=== PATIENT | male | born 1980 | race Caucasian/White ===

== ENCOUNTER 2019-07-18 16:33 | Emergency (ER) | payer BC, OTHER ==
[2019-07-18 17:08] VITALS: BP 128/77; PULSE 81; TEMP 99.2; BMI 34.4
--- NOTE | 2019-07-18 17:10 | PDOC ---
Rapid Medical Evaluation Chief Complaint: Cold Symptoms Time Seen by Provider: 07/18/19 17:07 Medical Evaluation: Allergies Allergy/AdvReac Type Severity Reaction Status Date / Time No Known Allergies Allergy Verified 07/18/19 17:05 Vital Signs Temp Pulse Resp BP Pulse Ox 99.2 F 81 16 128/77 97 07/18/19 17:05 07/18/19 17:05 07/18/19 17:05 07/18/19 17:05 07/18/19 17:05 07/18/19 17:08 I have performed a brief in-person evaluation of this patient. The patient presents with a chief complaint of: 1 month h/o persistent cough, runny nose, malaise and congestion. report had flu and strep test done which was negative Pertinent physical exam findings: afebrile I have ordered the following:CXR The patient will proceed to the ED for further evaluation. Discharge Disposition - Diagnosis Acute URI - Discharge Dispostion Condition at time of disposition: Stable - Referrals - Patient Instructions - Post Discharge Activity
--- NOTE | 2019-07-18 18:57 | PDOC ---
History of Present Illness - General Chief Complaint: Cold Symptoms Stated Complaint: COLD SYMPTOMS Time Seen by Provider: 07/18/19 17:07 - History of Present Illness Initial Comments: 07/18/19 18:56 39-year-old male without comorbidities presents for 4 weeks of upper respiratory symptoms completed a Z-Erik a week two continues to have cold symptoms Past History - Past Medical History Allergies/Adverse Reactions: Allergies Allergy/AdvReac Type Severity Reaction Status Date / Time No Known Allergies Allergy Verified 07/18/19 17:05 Home Medications: Ambulatory Orders No Home Medications 0 dose .ROUTE UTDICT 11/09/13 Acetaminophen [Tylenol .Regular Strength -] 650 mg PO Q6H PRN #90 tablet Aspirin Coated [Ecotrin -] 81 mg PO DAILY #30 tablet.ec 11/10/13 Metoprolol Succinate [Toprol XL -] 50 mg PO DAILY #30 tab.sr.24h 11/10/13 Naph,Mb-Db/K pH,Mbdb [PHOS-NaK PACKET -] 1 packet PO TID #6 pow 11/10/13 - Psycho Social/Smoking Cessation Hx Smoking History: Never smoked Have you smoked in the past 12 months: Yes Number of Cigarettes Smoked Daily: 1 Cigars Per Day: 1 Information on smoking cessation initiated: No 'Breaking Loose' booklet given: 11/09/13 Hx Alcohol Use: No Drug/Substance Use Hx: No Substance Use Type: None Hx Substance Use Treatment: No Review of Systems - Review of Systems Constitutional: Yes: Fever HEENTM: Yes: Nose Congestion Respiratory: Yes: Cough *Physical Exam - Vital Signs Last Vital Signs Temp Pulse Resp BP Pulse Ox 99.2 F 81 16 128/77 97 07/18/19 17:05 07/18/19 17:05 07/18/19 17:05 07/18/19 17:05 07/18/19 17:05 - Physical Exam 07/18/19 18:56 GENERAL: The patient is awake, alert, and fully oriented, in no acute distress. HEAD: Normal with no signs of trauma. EYES: sclera anicteric, conjunctiva clear. ENT: Ears normal tympanic membranes normal oropharynx clear uvula midline NECK: Normal range of motion LUNGS: Breath sounds equal, clear to auscultation bilaterally. No wheezes, and no crackles. HEART: S1 and S2 without murmur, rub or gallop. ABDOMEN: Soft, nontender, normoactive bowel sounds. No guarding, no rebound. No masses. EXTREMITIES: Normal range of motion, no edema. No clubbing or cyanosis. No cords, erythema, or tenderness. NEUROLOGICAL: Cranial nerves II through XII grossly intact. PSYCH: Normal mood, normal affect. SKIN: Warm, Dry, normal turgor, no rashes or lesions noted. Medical Decision Making - Medical Decision Making 07/18/19 18:56 Supportive care for viral upper respiratory infection. Patient has no sinus tenderness or symptoms. Follow-up with PCP Discharge - Discharge Information Problems reviewed: Yes Clinical Impression/Diagnosis: Acute URI Condition: Stable Disposition: HOME - Admission No - Follow up/Referral Referrals: Javad Nieves [Primary Care Provider] - - Patient Discharge Instructions Patient Printed Discharge Instructions: DI for Viral Upper Respiratory Infection -- Adult Additional Instructions: Tylenol and Motrin for fevers. Return to the emergency room for worsening symptoms and without fail follow-up with your primary care physician in 2 to 3 days for further evaluation and treatment options. Be careful with the amount of Tylenol you take no more than 3 g a day [id number] cold remedies also contain Tylenol depending on the brand - Post Discharge Activity
== END 2019-07-18 19:01 | disposition home or self-care (01) ==
LOC: JERFT 16:33
DX: J06.9 Acute upper respiratory infection, unspecified (principal)
CPT/HCPCS: 71046-TC-FY; 99281-25

== ENCOUNTER 2022-06-22 17:16 | Emergency (ER) | payer BC, OTHER ==
[2022-06-22 18:23] VITALS: BP 109/66; PULSE 87; RESP 20; TEMP 98.5; BMI 34.4
== END 2022-06-22 19:00 | disposition home or self-care (01) ==
LOC: JERFT 17:16 → JER 17:16 → JERFT 19:00
DX: L02.414 Cutaneous abscess of left upper limb (principal)
CPT/HCPCS: 99283-25

== ENCOUNTER 2022-07-29 04:07 | Day surgery (SDC) | payer OTHER ==
[2022-07-24 14:54] VITALS: BMI 36.0
[2022-07-29] MEDS ORDERED: MIDAZOLAM HCL 2 MG/2 ML SINGLE DOSE VIAL ONE (08:27)
[2022-07-29] MEDS ORDERED: PROPOFOL 20 ML ONE (09:12)
[2022-07-29] MEDS ORDERED: LIDOCAINE HCL 1%, 10 MG/ML (20ML VIAL) ONE (09:36)
[2022-07-29] MEDS ORDERED: BUPIVACAINE HCL/PF 0.5% (5MG/ML) 10 ML VIAL ONE (09:37)
[2022-07-29] MEDS ORDERED: ceFAZolin 2 GRAM PREMIX BAG IVPB ONE (09:40)
[2022-07-29] MEDS ORDERED: BUPIVACAINE HCL/PF 0.5% (5 MG/ML) 30 ML VIAL IJ ONE ×2 (09:50)
[2022-07-29] MEDS ORDERED: LIDOCAINE HCL 1%, 10 MG/ML (20ML VIAL) INF ONE ×2 (09:50)
[2022-07-29] MEDS ORDERED: ACETAMINOPHEN 500 MG TABLET (FP) PO PRN (10:54)
[2022-07-29] MEDS ORDERED: ONDANSETRON 4 MG/2 ML VIAL IVPUSH PRN (10:54)
[2022-07-29] MEDS ORDERED: oxyCODONE HCL 5 MG TABLET PO PRN (10:54)
[2022-07-29] MEDS ORDERED: ACETAMINOPHEN INJECTION 100 ML IVPB ONE (10:59)
[2022-07-29] MEDS ORDERED: ACETAMINOPHEN 1000 MG/100 ML BAG IVPB ONE (11:03)
[2022-07-29] MEDS ORDERED: oxyCODONE HCL 5 MG TABLET ONE (12:26)
[2022-07-29 13:22] VITALS: RESP 20; TEMP 98.1
[2022-07-29 13:24] VITALS: BP 128/84; PULSE 70
== END 2022-07-29 13:24 | disposition home or self-care (01) ==
LOC: JASU-SURG 04:07
PROVIDERS: ATTEND Orthopaedic Surgery
PROC: 01S40ZZ Reposition Ulnar Nerve, Open Approach (ICD-10-PCS; principal; 2022-07-29 09:00)
DX: G56.21 Lesion of ulnar nerve, right upper limb (principal)
CPT/HCPCS: 94760